=== PATIENT | female | born 1970 | race Caucasian/White ===

== ENCOUNTER → 2023-11-29 14:15 | Outpatient (REF) | payer BC, SELFPAY | LOC: WDC 14:15 | PROVIDERS: ATTENDING PHYSICIAN Obstetrics & Gynecology Gynecology | DX: Z12.31 Encounter for screening mammogram for malignant neoplasm of breast (principal) | CPT/HCPCS: 77063; 77067 ==

== ENCOUNTER → 2024-02-03 13:13 | Outpatient (REF) | payer BC, SELFPAY | LOC: WDC 13:13 | PROVIDERS: ATTENDING PHYSICIAN Surgery; FAMILY PHYSICIAN Internal Medicine | DX: R92.2 Inconclusive mammogram (principal) | CPT/HCPCS: 76641 ==

== ENCOUNTER → 2024-12-02 09:02 | Outpatient (REF) | payer BC, SELFPAY | LOC: WDC 09:02 | PROVIDERS: ATTENDING PHYSICIAN Obstetrics & Gynecology Gynecology | DX: Z12.31 Encounter for screening mammogram for malignant neoplasm of breast (principal); Z12.39 Encounter for other screening for malignant neoplasm of breast | CPT/HCPCS: 77063; 77067 ==